=== PATIENT | female | born 1970 | race Caucasian/White ===

== ENCOUNTER 2017-04-29 15:46 | Emergency (ER) | payer MEDICAID, OTHER ==
[~2017-04-29] VITALS: Ht 172.7 cm; Wt 61.4 kg
[2017-04-29] MEDS ORDERED: ARIPIPRAZOLE 5 MG TAB PO STA (15:49)
[2017-04-29 16:00] VITALS: Ht 172.7 cm; Wt 61.4 kg
[2017-04-29] MEDS ORDERED: LORAZEPAM 1 MG TAB PO ONE (16:00)
[2017-04-29 16:19] LABS: ADD SCAN DIFF NO
[2017-04-29 16:23] LABS: ABNORMAL IP MESSAGE 1; BASOPHIL # 0.1 10^3/ul (0.0-0.1); BASOPHILS % 0.6 % (0.0-2.0); EOSINOPHILS % 0.1 % (0.0-7.0); HEMATOCRIT 40.2 % (37.0-47.0); HEMOGLOBIN 13.6 g/dl (12.0-16.0); LYMPHOCYTES # 1.4 10^3/ul (0.8-2.9); LYMPHOCYTES % 12.3 % (15.0-51.0); MEAN CORPUSCULAR HEMOGLOBIN 29.5 pg (29.0-33.0); MEAN CORPUSCULAR HGB CONC 33.8 g/dl (32.0-37.0); MEAN CORPUSCULAR VOLUME 87.2 fl (82.0-101.0); MEAN PLATELET VOLUME 14.1 fl (7.4-10.4); MONOCYTE # 0.6 10^3/ul (0.3-0.9); MONOCYTES % 5.8 % (0.0-11.0); NEUTROPHILS % 80.7 % (39.0-77.0); PLATELET COUNT 127 10^3/UL (140-415); RED BLOOD COUNT 4.61 10^6/ul (4.20-5.40); RED CELL DISTRIBUTION WIDTH 13.5 % (11.5-14.5); WHITE BLOOD COUNT 11.1 10^3/ul (4.8-10.8)
[2017-04-29 16:26] LABS: ADD UMIC NO; UR ASCORBIC ACID 40 mg/dL (NEGATIVE); UR BILIRUBIN (Dip) NEGATIVE (NEGATIVE); UR BLOOD (Dip) NEGATIVE (NEGATIVE); UR CLARITY SLIGHTLY CLOUDY (CLEAR); UR COLOR YELLOW (YELLOW); UR GLUCOSE (Dip) NEGATIVE (NEGATIVE); UR KETONES (Dip) NEGATIVE (NEGATIVE); UR LEUKOCYTE ESTERASE (Dip) NEGATIVE Leu/ul (NEGATIVE); UR MUCUS FEW /HPF (NONE SEEN); UR NITRITE (Dip) NEGATIVE (NEGATIVE); UR RBC 0 /HPF (0-5); UR SPECIFIC GRAVITY (Dip) 1.024 (1.003-1.030); UR SQUAMOUS EPITHELIAL CELL FEW /HPF (FEW); UR TOTAL PROTEIN (Dip) NEGATIVE (NEGATIVE); UR UROBILINOGEN (Dip) NEGATIVE (NEGATIVE)
[2017-04-29 16:42] LABS: CANNABINOIDS Negative (NEGATIVE)
[2017-04-29 16:44] LABS: BARBITURATES Negative (NEGATIVE); BENZODIAZEPINES Negative (NEGATIVE); COCAINE Negative (NEGATIVE); OPIATES Negative (NEGATIVE)
[2017-04-29 16:51] LABS: ALANINE AMINOTRANSFERASE 35 IU/L (13-69); ALBUMIN 5.2 g/dl (3.3-4.9); ALBUMIN/GLOBULIN RATIO 1.44; ALKALINE PHOSPHATASE 83 IU/L (42-121); ANION GAP 24 (8-16); ASPARTATE AMINO TRANSFERASE 31 IU/L (15-46); BILIRUBIN,INDIRECT 0.3 mg/dl (0-1.1); BILIRUBIN,TOTAL 0.3 mg/dl (0.2-1.3); BLOOD UREA NITROGEN 22 mg/dl (7-20); CALCIUM 10.4 mg/dl (8.4-10.2); CARBON DIOXIDE 20 mmol/L (21-31); CHLORIDE 103 mmol/L (97-110); CREATININE 0.89 mg/dl (0.44-1.00); GLUCOSE 131 mg/dl (70-220); POTASSIUM 3.9 mmol/L (3.5-5.1); SODIUM 143 mmol/L (135-144); TOTAL PROTEIN 8.8 g/dl (6.1-8.1)
[2017-04-29 17:22] LABS: ETHANOL < 10.0 mg/dl
[2017-04-29 17:29] LABS: ACETAMINOPHEN < 10.0 ug/ml (10.0-30.0); SALICYLATE < 1.0 mg/dl (5.0-30.0)
--- NOTE | 2017-04-29 18:10 | ERA ---
ER Documentation Chief Complaint Date/Time DATE: 04/29/17 TIME: 18:08 Chief Complaint 911 called by bystander, pt confused and talking qword mary murillo HPI Patient is a 46-year-old female who presents with what appears to be acute psychosis. Please note the history and physical exam is limited secondary to the patient's disorganized thoughts at this time. The patient says "Ciarra Thao and I cannot go on". She is homeless. She said that she is trying to donate plasma and then called 911. She is complaining of right arm and leg pain but says "there is something in my right arm and right leg it is controlling me". She said that she drank alcohol yesterday. Upon review of old medical records this is the patient's first visit to the emergency department. Review of the emergency department information exchange system does not show any other visits. ROS All systems reviewed and are negative except as per history of present illness. Medications Home Meds No Active Prescriptions or Reported Meds Allergies Allergies: Coded Allergies: haloperidol (Verified Allergy, Unknown, " slows down her mind", 04/29/17) olanzapine (Unverified Allergy, Unknown, 04/29/17) PMhx/Soc Medical and Surgical Hx: pt denies Medical Hx, pt denies Surgical Hx Anesthesia Reaction: No Hx Neurological Disorder: No Hx Respiratory Disorders: No Hx Cardiac Disorders: No Hx Psychiatric Problems: Yes Hx Miscellaneous Medical Probl: Yes (healing wound to right hand and right foot ) Hx Alcohol Use: Yes Hx Substance Use: Yes (meth) Hx Tobacco Use: Yes Smoking Status: Current every day smoker FmHx Unable to obtain Physical Exam Vitals Vital Signs Date Time Temp Pulse Resp B/P Pulse Ox O2 Delivery O2 Flow Rate FiO2 04/29/17 16:50 91 17 117/71 98 Room Air 04/29/17 16:00 97.9 138 25 141/114 100 Physical Exam Const: Anxious and disorganized Head: Atraumatic Eyes: Normal Conjunctiva ENT: Normal External Ears, Nose and Mouth. Neck: Full range of motion..~ No meningismus. Resp: Clear to auscultation bilaterally Cardio: Regular rate and rhythm, no murmurs Abd: Soft, non tender, non distended. Normal bowel sounds Skin: No petechiae or rashes Back: No midline or flank tenderness Ext: No cyanosis, or edema Neur: Awake and moves all 4 extremities Psych: Disorganized thinking, flight of ideas, paranoia Result Diagram: 04/29/17 1610 04/29/17 1610 Results 24 hrs Laboratory Tests Test 04/29/17 16:10 White Blood Count 11.110^3/ul Red Blood Count 4.6110^6/ul Hemoglobin 13.6g/dl Hematocrit 40.2% Mean Corpuscular Volume 87.2fl Mean Corpuscular Hemoglobin 29.5pg Mean Corpuscular Hemoglobin Concent 33.8g/dl Red Cell Distribution Width 13.5% Platelet Count 63295^3/UL Mean Platelet Volume 14.1fl Neutrophils % 80.7% Lymphocytes % 12.3% Monocytes % 5.8% Eosinophils % 0.1% Basophils % 0.6% Nucleated Red Blood Cells % 0.0/100WBC Neutrophils # 9.010^3/ul Lymphocytes # 1.410^3/ul Monocytes # 0.610^3/ul Eosinophils # 0.010^3/ul Basophils # 0.110^3/ul Nucleated Red Blood Cells # 0.010^3/ul Urine Color YELLOW Urine Clarity SLIGHTLY CLOUDY Urine pH 6.0 Urine Specific [place] 1.024 Urine Ketones NEGATIVEmg/dL Urine Nitrite NEGATIVEmg/dL Urine Bilirubin NEGATIVEmg/dL Urine Urobilinogen NEGATIVEmg/dL Urine Leukocyte Esterase NEGATIVELeu/ul Urine Microscopic RBC 0/HPF Urine Microscopic WBC 3/HPF Urine Squamous Epithelial Cells FEW/HPF Urine Mucus FEW/HPF Urine Hemoglobin NEGATIVEmg/dL Urine Glucose NEGATIVEmg/dL Urine Total Protein NEGATIVEmg/dl Sodium Level 143mmol/L Potassium Level 3.9mmol/L Chloride Level 103mmol/L Carbon Dioxide Level 20mmol/L Anion Gap 24 Blood Urea Nitrogen 22mg/dl Creatinine 0.89mg/dl Glucose Level 131mg/dl Calcium Level 10.4mg/dl Total Bilirubin 0.3mg/dl Direct Bilirubin 0.00mg/dl Indirect Bilirubin 0.3mg/dl Aspartate Amino Transf (AST/SGOT) 31IU/L Alanine Aminotransferase (ALT/SGPT) 35IU/L Alkaline Phosphatase 83IU/L Total Protein 8.8g/dl Albumin 5.2g/dl Globulin 3.60g/dl Albumin/Globulin Ratio 1.44 Salicylates Level < 1.0mg/dl Urine Opiates Screen Negative Acetaminophen Level < 10.0ug/ml Urine Barbiturates Negative Urine Amphetamines Screen Negative Urine Benzodiazepines Screen Negative Urine Cocaine Screen Negative Urine Cannabinoids Negative Ethyl Alcohol Level < 10.0mg/dl Current Medications Medications (Trade) Dose Ordered Sig/Della Route PRN Reason Start Time Stop Time Status Last Admin Dose Admin Aripiprazole (Abilify) 5 mg ONCE STAT PO 04/29/17 15:49 04/29/17 15:51 DC 04/29/17 16:49 Lorazepam (Ativan) 1 mg ONCE ONCE PO 04/29/17 16:00 04/29/17 16:01 DC 04/29/17 16:06 Procedures/MDM Smoking Cessation Therapy: Pt. was lectured for greater than 3 minutes on the health risks of continued smoking and the benefits of cessation. Patient is a 46-year-old female who presents with what appears to be acute psychosis. The patient was given Abilify and Ativan. She has now been medically cleared with laboratory studies and urine drug screen. The patient is pending a psychiatry evaluation but I do think that she will require a 5150 hold for acute psychosis and grave disability. The patient is now medically cleared and will need psychiatric transfer. Critical Care: Time: 35 minutes excluding all billable procedures. Treatments/Evaluations: Close monitoring and treatment of unstable vital signs, cardiorespiratory, and neurologic status, while maintaining tight balance of fluid, respiratory, and cardiac interventions. Departure Diagnosis: Primary Impression: Psychosis Qualified Code: F29 - Psychosis, unspecified psychosis type Additional Impression: Psychological disorder Condition: BRETT Whitley MD Apr 29, 2017 18:10
--- NOTE | 2017-04-29 20:14 | PSY ---
Date/Time of Note Date/Time of Note DATE: 04/29/17 TIME: 20:07 Psychiatric Subjective Eval Consent Pt consented to telemedicine: Yes Subjective Evaluation Patient location: emergency Chief Complaint: 911 called by bystander, pt confused and talking qwduyen josé lapd History of present illness she was at [facility], where she created commotion becasue she stated thta they need to cut her arm, people were after her, rambling, disheveled. She stated that she has lots of children all over, she has businesses to take care of but they are coming after her, she needs to protect herself, she has hiuses but they are not wanting her, every one is trying to hurt her, she does not know who " they " are . She has not been sleeping well, when asked what date it was she stated " according to them , their calendar it is April 2017" Past psychiatric history denies but stated she is allergic to haldol and Zy[rexa it slows her mind. Hospitalization: yes Family History unknown Medical history Problems Medical Problems: (1) Psychological disorder Status: Acute (2) Psychosis Status: Acute Allergies: Coded Allergies: haloperidol (Verified Allergy, Unknown, " slows down her mind", 04/29/17) olanzapine (Unverified Allergy, Unknown, 04/29/17) Substance Abuse Substance use: No known substance abuse Psychiatric Objective Eval Review of Systems: Review of Systems: Not Applicable Physical Examination: Physical Examination: Not Applicable Mental Status Examination: Appearance: Disheveled Eye Contact: Fair Psychomotor Activity: Agitated Behavior: Suspicious Speech: Disorganized AFFECT: Libile Mood: Elevated Though Process: Loose Thought Content: Delusions Suicidal: No Homicidal: No Orientation: x3 Cognition: Alert Insight: Impared Judgement: Impared Attention Span: Distractible Laboratory Results Laboratory Tests Test 04/29/17 16:10 04/29/17 16:20 White Blood Count 11.110^3/ul Red Blood Count 4.6110^6/ul Hemoglobin 13.6g/dl Hematocrit 40.2% Mean Corpuscular Volume 87.2fl Mean Corpuscular Hemoglobin 29.5pg Mean Corpuscular Hemoglobin Concent 33.8g/dl Red Cell Distribution Width 13.5% Platelet Count 19138^3/UL Mean Platelet Volume 14.1fl Neutrophils % 80.7% Lymphocytes % 12.3% Monocytes % 5.8% Eosinophils % 0.1% Basophils % 0.6% Nucleated Red Blood Cells % 0.0/100WBC Neutrophils # 9.010^3/ul Lymphocytes # 1.410^3/ul Monocytes # 0.610^3/ul Eosinophils # 0.010^3/ul Basophils # 0.110^3/ul Nucleated Red Blood Cells # 0.010^3/ul Urine Color YELLOW Urine Clarity SLIGHTLY CLOUDY Urine pH 6.0 Urine Specific [place] 1.024 Urine Ketones NEGATIVEmg/dL Urine Nitrite NEGATIVEmg/dL Urine Bilirubin NEGATIVEmg/dL Urine Urobilinogen NEGATIVEmg/dL Urine Leukocyte Esterase NEGATIVELeu/ul Urine Microscopic RBC 0/HPF Urine Microscopic WBC 3/HPF Urine Squamous Epithelial Cells FEW/HPF Urine Mucus FEW/HPF Urine Hemoglobin NEGATIVEmg/dL Urine Glucose NEGATIVEmg/dL Urine Total Protein NEGATIVEmg/dl Sodium Level 143mmol/L Potassium Level 3.9mmol/L Chloride Level 103mmol/L Carbon Dioxide Level 20mmol/L Anion Gap 24 Blood Urea Nitrogen 22mg/dl Creatinine 0.89mg/dl Glucose Level 131mg/dl Calcium Level 10.4mg/dl Total Bilirubin 0.3mg/dl Direct Bilirubin 0.00mg/dl Indirect Bilirubin 0.3mg/dl Aspartate Amino Transf (AST/SGOT) 31IU/L Alanine Aminotransferase (ALT/SGPT) 35IU/L Alkaline Phosphatase 83IU/L Total Protein 8.8g/dl Albumin 5.2g/dl Globulin 3.60g/dl Albumin/Globulin Ratio 1.44 Salicylates Level < 1.0mg/dl Urine Opiates Screen Negative Acetaminophen Level < 10.0ug/ml Urine Barbiturates Negative Urine Amphetamines Screen Negative Urine Benzodiazepines Screen Negative Urine Cocaine Screen Negative Urine Cannabinoids Negative Ethyl Alcohol Level < 10.0mg/dl Serum HCG, Qualitative NEGATIVE Assessment and Plan Assessment/Diagnosis Clarence I: schizoaffective disorder bipolar tyep, curent manic with psychotic features Clarence II: deferred Recommendation/Plan Medication Management nknown Psychotherapy severe Pt. Caregiver/Family Education 20 Follow-up/Disposition admit to psychiatry under 5150 for grave disability 5150 Recommendation: Place DIANA Ervin MD Apr 29, 2017 20:14
--- NOTE | 2017-04-29 20:15 | PSY ---
Date/Time of Note Date/Time of Note DATE: 04/29/17 TIME: 20:14 Psychiatric Subjective Eval Subjective Evaluation Patient location: emergency Chief Complaint: 911 called by bystander, pt confused and talking qword salad bib lapd Hospitalization: yes Medical history Problems Medical Problems: (1) Psychological disorder Status: Acute (2) Psychosis Status: Acute Allergies: Coded Allergies: haloperidol (Verified Allergy, Unknown, " slows down her mind", 04/29/17) olanzapine (Unverified Allergy, Unknown, 04/29/17) Psychiatric Objective Eval Mental Status Examination: Laboratory Results Laboratory Tests Test 04/29/17 16:10 04/29/17 16:20 White Blood Count 11.110^3/ul Red Blood Count 4.6110^6/ul Hemoglobin 13.6g/dl Hematocrit 40.2% Mean Corpuscular Volume 87.2fl Mean Corpuscular Hemoglobin 29.5pg Mean Corpuscular Hemoglobin Concent 33.8g/dl Red Cell Distribution Width 13.5% Platelet Count 59489^3/UL Mean Platelet Volume 14.1fl Neutrophils % 80.7% Lymphocytes % 12.3% Monocytes % 5.8% Eosinophils % 0.1% Basophils % 0.6% Nucleated Red Blood Cells % 0.0/100WBC Neutrophils # 9.010^3/ul Lymphocytes # 1.410^3/ul Monocytes # 0.610^3/ul Eosinophils # 0.010^3/ul Basophils # 0.110^3/ul Nucleated Red Blood Cells # 0.010^3/ul Urine Color YELLOW Urine Clarity SLIGHTLY CLOUDY Urine pH 6.0 Urine Specific [place] 1.024 Urine Ketones NEGATIVEmg/dL Urine Nitrite NEGATIVEmg/dL Urine Bilirubin NEGATIVEmg/dL Urine Urobilinogen NEGATIVEmg/dL Urine Leukocyte Esterase NEGATIVELeu/ul Urine Microscopic RBC 0/HPF Urine Microscopic WBC 3/HPF Urine Squamous Epithelial Cells FEW/HPF Urine Mucus FEW/HPF Urine Hemoglobin NEGATIVEmg/dL Urine Glucose NEGATIVEmg/dL Urine Total Protein NEGATIVEmg/dl Sodium Level 143mmol/L Potassium Level 3.9mmol/L Chloride Level 103mmol/L Carbon Dioxide Level 20mmol/L Anion Gap 24 Blood Urea Nitrogen 22mg/dl Creatinine 0.89mg/dl Glucose Level 131mg/dl Calcium Level 10.4mg/dl Total Bilirubin 0.3mg/dl Direct Bilirubin 0.00mg/dl Indirect Bilirubin 0.3mg/dl Aspartate Amino Transf (AST/SGOT) 31IU/L Alanine Aminotransferase (ALT/SGPT) 35IU/L Alkaline Phosphatase 83IU/L Total Protein 8.8g/dl Albumin 5.2g/dl Globulin 3.60g/dl Albumin/Globulin Ratio 1.44 Salicylates Level < 1.0mg/dl Urine Opiates Screen Negative Acetaminophen Level < 10.0ug/ml Urine Barbiturates Negative Urine Amphetamines Screen Negative Urine Benzodiazepines Screen Negative Urine Cocaine Screen Negative Urine Cannabinoids Negative Ethyl Alcohol Level < 10.0mg/dl Serum HCG, Qualitative NEGATIVE Assessment and Plan Recommendation/Plan Medication Management recommend starting Abilify 10mg HS. Abilify 5mg IM iwth Avitan 1mg q 8 hrs PRN agitation DIANA DILLARD MD Apr 29, 2017 20:15
[2017-04-29] MEDS ORDERED: ARIPIPRAZOLE 10 MG TAB PO SCH (21:00)
[2017-04-29] MEDS ORDERED: BACITRACIN 0.9 GM OINT TOP ONE (23:30)
[2017-04-30] MEDS ORDERED: hydrOXYzine HCL 25 MG TAB PO ONE (02:30)
[2017-04-30 02:44] VITALS: BP 123/60; PULSE 80; RESP 18; TEMP 97.9
== END 2017-04-30 02:48 | disposition home or self-care (01) ==
LOC: E/R 15:46
DX: F29 Unspecified psychosis not due to a substance or known physiological condition (principal); F17.210 Nicotine dependence, cigarettes, uncomplicated
CPT/HCPCS: 36415; 80053; 80306; 80307; 81001; 81003; 84703; 85025; J0400; Z7502; Z7610; 99291